=== PATIENT | female | born 1960 | race Asian ===

== ENCOUNTER 2019-11-26 00:41 | Emergency (ER) | payer MEDICAID ==
[~2019-11-26] VITALS: Ht 144.8 cm; Wt 53.1 kg
[2019-11-26 01:15] VITALS: BP 108/63
[2019-11-26] MEDS ORDERED: TETANUS-DIPTH-ACEL PERTUSSIS 0.5ML SYR Tdap IM ONE (01:15)
== END 2019-11-26 01:04 | disposition home or self-care (01) ==
LOC: ER 00:44
DX: S71.151A Open bite, right thigh, initial encounter (principal); W54.0XXA Bitten by dog, initial encounter; Y93.89 Activity, other specified; Y92.89 Other specified places as the place of occurrence of the external cause; Y99.8 Other external cause status
CPT/HCPCS: 90471; 90715